=== PATIENT | female | born 1935 | race Caucasian/White ===

== ENCOUNTER 2016-11-18 15:47 | Emergency (ER) | payer OTHER ==
--- NOTE | ~2016-11-18 | CR210 ---
[facility] A Service of [facility] RADIOLOGY TEXT RESULTS PATIENT: SCOOTER CASTELLANO LOCATION: [facility] : 34 UNIT #: [id number] AGE: [address]: Juliocesar Mcmanus MD SEX: F ORDER DR: [id number] [facility] [address] [place], [place] [address] [id number] E MR#: [id number] #: [id number] NAME: SCOOTER CASTELLANO. : 1935 SEX: F STUDY DATE/TIME: 11/18/2016 16:56 UNIT: [facility] ROOM: STUDY DESCRIPTION: CR Ribs Uni 2 View W PA Ch Lt Attending Physician: Todd Mcmanus M.D. Ordering Physician: Angel Ames M.D. Primary Care Physician: Derrell Sood M.D. MEDICAL IMAGING REPORT This report is preliminary unless electronic signature is present EXAM PA chest with AP and oblique views of the left ribs COMPARISON 2 views of the chest dated July 15, 2013. INDICATION 17-year-old female with left-sided anterior rib pain since falling on the left side yesterday. FINDINGS There is a large to moderate sized hiatal hernia with internal air-fluid level in the lower midline chest. No evidence of pneumothorax, pleural effusion, pulmonary contusion or acute airspace disease. Heart size is normal. There is mild calcification of the thoracic aorta. There is mild scoliosis of the lumbar spine. There is diffuse calcification of the abdominal aorta. No evidence of acute rib fracture is seen. IMPRESSION 1. No evidence of acute rib fracture on the current exam. No acute radiographic abnormality of the chest. 2. Jlybrboq-hw-vzioj hiatal hernia. 3. Calcification of the thoracic and abdominal aorta. Dictated by... Amando Coulter M.D. THIS IS AN ELECTRONICALLY VERIFIED REPORT Amando Coulter M.D. at 11/23/2016 1:17 PM STACIE/rnr TD: 11/18/2016 21:53 [facility] A Service of [facility] RADIOLOGY TEXT RESULTS PATIENT: SCOOTER CASTELLANO LOCATION: [facility] #: [id number] : 34 UNIT #: [id number] AGE: [address]: Juliocesar Mcmanus MD SEX: F ORDER DR: JOB #: [id number] MEDICAL IMAGING REPORT Page 1 of 1 COPY
[~2016-11-18 15:47] MED LIST: ASPIRIN PO; CITRACAL + D CA1 TA1 PO; COREG3.125 MG PO; CRESTOR10 MG PO; DAKIN'S MODIF1000 ML EXT; DIAZIDE PO; FISH OIL 1,2001 CAP PO; FORTEO2.4 ML SQ; HYDROCODON-ACE1 EACH PO; LEVAQUIN PO; LOPID600 MG PO; LORAZEPAM0.5 MG PO; LYRICA75 MG PO; MEDROL PO; OSTEO BIFLEX TRIPLE PO; PERCOCET 5-3251 TAB PO; PREVACID PO; THERAGRAN-M 1,21 CAP PO; TRIAMTERENE; TRIAMTERENE PO; TRIAMTERENE-HCT1 TA8 PO; VALTREX PO; VICODIN 5/500 T1 TAB PO; VITAMIN B 12 PO; VITAMIN D 22000 UNIT PO; XARELTO15 MG PO; ZETIA PO; ZOLOFT PO
[2016-12-14] MEDS ORDERED: OMNICEF300 MG PO (12:51)
[2016-12-14] MEDS ORDERED: WOMEN S BONE H PO (12:51)
[2016-12-14] MEDS ORDERED: COREG3.125 MG PO (17:30)
[2016-12-14] MEDS ORDERED: CRESTOR PO (17:30)
[2016-12-14] MEDS ORDERED: VITAMIN D32000 UNI1 PO (17:31)
[2016-12-14] MEDS ORDERED: ATIVAN PO (17:31)
[2016-12-14] MEDS ORDERED: ZOLOFT100 MG PO (17:31)
[2016-12-14] MEDS ORDERED: ASPIRIN81 M2 PO (17:31)
[2016-12-14] MEDS ORDERED: FISH OIL 1,2001 CAP PO (17:31)
[2016-12-14] MEDS ORDERED: LANSOPRAZOLE30 M2 PO (17:32)
[2016-12-14] MEDS ORDERED: CITRACAL + D E1 EACH PO (17:32)
[2016-12-14] MEDS ORDERED: THERAGRAN-M PR1 EACH PO (17:32)
== END 2016-11-18 18:18 | disposition home or self-care (01) ==
LOC: CED 15:47
DX: S20.212A Contusion of left front wall of thorax, initial encounter (principal); Z88.5 Allergy status to narcotic agent; W18.30XA Fall on same level, unspecified, initial encounter; Y92.009 Unspecified place in unspecified non-institutional (private) residence as the place of occurrence of the external cause
CPT/HCPCS: 71101; 99283

== ENCOUNTER 2016-11-19 09:50 | Emergency (ER) | payer OTHER ==
[~2016-11-19] VITALS: Ht 167.6 cm; Wt 79.4 kg
--- NOTE | ~2016-11-19 | CT2 ---
[facility] A Service of [facility] RADIOLOGY TEXT RESULTS PATIENT: SCOOTER CASTELLANO LOCATION: [facility] : 34 UNIT #: [id number] AGE: [address]: Ej Orlando MD SEX: F ORDER DR: [id number] [facility] [place], [place] [address] [id number] E MR#: [id number] Acc #: [id number] NAME: SCOOTER CASTELLANO. : 1935 SEX: F STUDY DATE/TIME: 11/19/2016 12:32 UNIT: [facility] ROOM: STUDY DESCRIPTION: CT Abd and Pelv W Cont Attending Physician: Ej Orlando M.D. Ordering Physician: Ej Orlando M.D. Primary Care Physician: Derrell Sood M.D. MEDICAL IMAGING REPORT This report is preliminary unless electronic signature is present EXAM CT abdomen and pelvis INDICATIONS Left-sided abdominal pain status post fall. Hematoma along the left abdomen. Pain with inspiration. TECHNIQUE CT of the abdomen utilizing 100 mL Isovue-370 IV contrast. Coronal and sagittal reconstructions were obtained. This CT exam was performed with one or more of the following radiation dose reduction techniques: automatic exposure control, adjustment of mA and/or kV according to patient size, and iterative reconstruction. COMPARISON Concurrent CT chest 11/19/2016. FINDINGS There is a moderate hiatal hernia. There is no acute traumatic findings in the solid abdominal organs. Small volume of pneumobilia presumably represents prior sphincterotomy. Patient has a large periampullary duodenal diverticulum. There is extensive colonic diverticulosis. No diverticulitis. Pelvis: No pelvic mass. Bladder is unremarkable. No enlarged pelvic or inguinal lymph nodes. No acute osseous abnormalities. IMPRESSION 1. No acute traumatic findings or pelvis. [facility] A Service [facility] RADIOLOGY TEXT RESULTS PATIENT: SCOOTER CASTELLANO LOCATION: [facility] : 34 UNIT #: [id number] AGE: [address]: Ej Orlando MD SEX: F ORDER DR: 2. Extensive colonic diverticulosis. No diverticulitis. Dictated by... Raghavendra Ferrell M.D. THIS IS AN ELECTRONICALLY VERIFIED REPORT Raghavendra Ferrell M.D. at 11/20/2016 5:12 PM MUSTAPHA/isaac TD: 11/19/2016 16:40 JOB #: [id number] MEDICAL IMAGING REPORT Page 1 of 1 COPY
--- NOTE | ~2016-11-19 | CT55 ---
[facility] A Service of [facility] RADIOLOGY TEXT RESULTS PATIENT: SCOOTER CASTELLANO LOCATION: [facility] : 34 UNIT #: [id number] AGE: [address]: Ej Orlando MD SEX: F ORDER DR: [id number] [id number] [facility]. [place], [place] [address] [id number] E MR#: [id number] Acc #: [id number] NAME: SCOOTER CASTELLANO. : 1935 SEX: F STUDY DATE/TIME: 11/19/2016 12:32 UNIT: [facility] ROOM: STUDY DESCRIPTION: CT Chest W Con Attending Physician: Ej Orlando M.D. Ordering Physician: [facility] Primary Care Physician: Derrell Sood M.D. MEDICAL IMAGING REPORT This report is preliminary unless electronic signature is present EXAM CT chest INDICATIONS Fall. Left-sided pain. Hematoma left abdomen. Left chest pain. Pain with inspiration. TECHNIQUE CT of the chest with IV contrast. Coronal and sagittal reconstructions were obtained. This CT exam was performed with one or more of the following radiation dose reduction techniques: automatic exposure control, adjustment of mA and/or kV according to patient size, and iterative reconstruction. COMPARISON Chest radiograph 07/15/2013. FINDINGS There is some mild atelectasis in both lung bases, left greater than right. No evidence of acute pulmonary injury. Thoracic aorta is normal in caliber. No mediastinal hematoma. No pericardial or pleural effusion. Please refer to separately dictated report for details on the abdomen. There is no acute fracture. IMPRESSION 1. Mild atelectasis in the lung bases, left greater than right. 2. No acute traumatic findings identified. [facility] A Service of [facility] RADIOLOGY TEXT RESULTS PATIENT: SCOOTER CASTELLANO LOCATION: [facility] : 34 UNIT #: [id number] AGE: [address]: Ej Orlando MD SEX: F ORDER DR: Dictated by... Raghavendra Ferrell M.D. THIS IS AN ELECTRONICALLY VERIFIED REPORT Raghavendra Ferrell M.D. at 11/20/2016 5:11 PM MUSTAPHA/apollo TD: 11/19/2016 16:19 JOB #: [id number] MEDICAL IMAGING REPORT Page 1 of 1 COPY
[2016-11-19 12:31] LABS: BASOPHIL% 0.3 % (0-2.5); EOSINOPHIL% 0.4 % (0.0-7.0); HEMATOCRIT 33.5 % (35.0-45.0); HEMOGLOBIN 10.6 gm/dL (12.0-16.0); LYMPHOCYTE# 0.9 X10e3 (1.0-3.5); LYMPHOCYTE% 10.5 % (17.0-45.0); MEAN CELL VOLUME 96.1 FL (83-96); MEAN CORPUSCULAR HEMOGLOBIN 30.4 PG (28-34); MEAN CORPUSCULAR HGB CONC 31.7 g/dL (30-36); MEAN PLATELET VOLUME 9.7 FL (6.5-11.5); MONOCYTE# 0.7 X10e3 (0-1.0); MONOCYTE% 8.1 % (3.0-12.0); NEUTROPHIL# 6.8 X10e3 (1.5-7.1); NEUTROPHIL% 80.7 % (40-75); PLATELET COUNT 151 X10e3 (140-420); RED BLOOD COUNT 3.48 X10e (3.90-5.30); RED CELL DISTRIBUTION WIDTH 17.4 % (11.0-15.5); WHITE BLOOD COUNT 8.5 X10e3 (4.0-10.5)
[2016-11-19 12:32] LABS: DIFF IND NO
[2016-11-19 13:01] LABS: ALBUMIN SERUM 3.8 g/dL (3.5-5.0); BILIRUBIN, DIRECT 0.2 mg/dL (0.0-0.2); BILIRUBIN,INDIRECT 0.4 mg/dL (0.0-0.9); BILIRUBIN,TOTAL 0.6 mg/dL (0.2-2.0); CALCIUM SERUM 8.6 mg/dL (8.4-10.2); GLOM FILT RATE Estimated 52.4 mL/min (>60); POTASSIUM 4.2 mmol/L (3.5-5.1); PROTEIN TOTAL SERUM 7.7 g/dL (6.0-8.3)
[2016-11-19 16:15] LABS: POC - CREATININE 0.79 mg/dL (0.44-1.03); POC - GFR >60.0 mL/min (>60)
[2016-12-14] MEDS ORDERED: OMNICEF300 MG PO (12:51)
[2016-12-14] MEDS ORDERED: WOMEN S BONE H PO (12:51)
[2016-12-14] MEDS ORDERED: COREG3.125 MG PO (17:30)
[2016-12-14] MEDS ORDERED: CRESTOR PO (17:30)
[2016-12-14] MEDS ORDERED: ATIVAN PO (17:31)
[2016-12-14] MEDS ORDERED: ASPIRIN81 M2 PO (17:31)
[2016-12-14] MEDS ORDERED: VITAMIN D32000 UNI1 PO (17:31)
[2016-12-14] MEDS ORDERED: FISH OIL 1,2001 CAP PO (17:31)
[2016-12-14] MEDS ORDERED: ZOLOFT100 MG PO (17:31)
[2016-12-14] MEDS ORDERED: THERAGRAN-M PR1 EACH PO (17:32)
[2016-12-14] MEDS ORDERED: LANSOPRAZOLE30 M2 PO (17:32)
[2016-12-14] MEDS ORDERED: CITRACAL + D E1 EACH PO (17:32)
== END 2016-11-19 13:27 | disposition home or self-care (01) ==
LOC: CED 09:50
PROVIDERS: Emergency Medicine
DX: S20.212A Contusion of left front wall of thorax, initial encounter (principal); W18.09XA Striking against other object with subsequent fall, initial encounter; Y92.009 Unspecified place in unspecified non-institutional (private) residence as the place of occurrence of the external cause
CPT/HCPCS: 36415; 71260; 74177; 80048; 80076; 82565; 85025; 96374; 96375; 99284; J2270; J2405; Q9967

== ENCOUNTER 2016-11-22 13:34 | Inpatient (IN) | payer OTHER ==
[~2016-11-22] VITALS: Ht 167.6 cm; Wt 78.2 kg
--- NOTE | ~2016-11-22 | EKG ---
PATIENT: SCOOTER CASTELLANO UNIT #: [id number] Ventricular Rate: 74 BPM Atrial Rate: 74 BPM P-R Interval: 192 ms QRS Duration: 84 ms Q-T Interval: 382 ms QTC Calculation(Bezet): 424 ms P [place]: 48 degrees Calculated R [place]: -5 degrees Calculated T [place]: 34 degrees Diagnosis Line: Normal sinus rhythm Diagnosis Line: Normal ECG Diagnosis Line: No previous ECGs available Diagnosis Line: Confirmed by EVERT LY MD ([id number]) on Diagnosis Line: 11/22/2016 3:48:41 PM INTERPRETING MD: HERNAN
--- NOTE | ~2016-11-22 | HP ---
Unit #: [id number] #: [id number] Patient: SCOOTER CASTELLANO [id number] [facility]. [place], [place] [address] [id number] I MR#: [id number] NAME: SCOOTER CASTELLANO. ROOM: [id number] Age: 81 Sex: F Admission Date: 11/22/2016 : 1935 Attending Physician: Isa Ardon M.D. Primary Care Physician: Derrell Sood M.D. HISTORY AND PHYSICAL CHIEF COMPLAINT Altered mental status. HISTORY OF PRESENT ILLNESS The patient is an 81-year-old female with a past medical history of hypertension, hyperlipidemia, anxiety, depression, and vertigo, who presented to the emergency department for evaluation of the above. The patient apparently fell a few days prior to admission. She states that she has vertigo and "lost balance." She was seen in the emergency department on November 18, 2016. Imaging studies were done and showed no acute abnormality. She continued to have pain on the left torso area. She describes the pain as "sharp." It has been intermittent in nature. It is exaggerated by movement. Today, she started coughing. She reports chills, but no documented fever. She has also been somewhat confused per her daughter who is at the bedside. She has had visual hallucinations and has been "talking out of her head." She denies any vomiting and no diarrhea. In the emergency department, chest x-ray shows bibasilar atelectasis versus infiltrate. She was given Rocephin and azithromycin. She is being admitted to [facility] for evaluation and further treatment. PAST MEDICAL HISTORY 1. Admission to [facility] June 27, 2011, for back abscess, status post incision and drainage. Cultures grew MSSA. [facility]. 2. Hypertension. 3. Hyperlipidemia. 4. Anxiety and depression. 5. Vertigo. PAST SURGICAL HISTORY 1. Incision and drainage of back abscess. 2. Right hand surgery. 3. Hysterectomy. 4. Back surgery. SOCIAL HISTORY The patient lives alone. There is no tobacco or alcohol use. FAMILY HISTORY Unit #: [id number] #: [id number] Patient: GRAY,SCOOTER M Notable for her mother having breast cancer. ALLERGIES Codeine. HOME MEDICATIONS 1. Carvedilol. 2. Crestor. 3. Prevacid. 4. Lorazepam. 5. Zoloft. 6. Fish oil. 7. Aspirin. 8. Vitamin D. 9. Osteo Bi-Flex. 10. Citracal. 11. Lansoprazole. Home medications will need to be reviewed and verified. REVIEW OF SYSTEMS A complete review of systems is negative except as indicated in the History of Present Illness. PHYSICAL EXAMINATION VITAL SIGNS: Temperature is 98.2, pulse 86, respirations 16, blood pressure 155/82, and oxygen saturation is 93% on room air. GENERAL: Patient is a very pleasant female who is awake, alert, and in no acute distress. HEENT: Head is atraumatic. Mucous membranes are moist. NECK: Supple. Trachea is midline. CARDIOVASCULAR: Regular rate and rhythm. LUNGS: Clear to auscultation bilaterally with no increased work of breathing. ABDOMEN: Soft and nontender with bowel sounds present in all four quadrants. EXTREMITIES: Nontender with no pedal edema. NEUROLOGIC: Patient is awake and alert. She is oriented x3. She follows commands. PSYCHIATRIC: Mood and affect are normal. Patient is cooperative. SKIN: Skin of examined areas is warm and dry. The patient has ecchymoses involving the left torso. DIAGNOSTIC STUDIES LABORATORY: Complete blood count from today notable for hemoglobin and hematocrit of 10.3 and 33, respectively. Comprehensive metabolic panel notable for AST and ALT of 94 and 51, respectively, alkaline phosphatase is 200, and albumin is 3.4. IMAGING: Chest x-ray shows bibasilar atelectasis versus infiltrate. CT of the head shows nothing acute. Left rib detail shows no fracture. CT of the chest from November 19 showed mild atelectasis and no acute traumatic finding. CT of the abdomen and pelvis from November 19 showed no acute traumatic findings. Extensive colonic diverticulosis but no diverticulitis. CARDIOLOGY: EKG shows normal sinus rhythm with a rate of 74 beats per minute. Unit #: [id number] #: [id number] Patient: SCOOTER CASTELLANO ASSESSMENT The patient is an 81-year-old female with: 1. Altered mental status, toxic metabolic in etiology. 2. Pneumonia, community acquired. The patient received Rocephin and azithromycin in the emergency department. 3. Transaminitis. 4. Anemia. 5. Hypertension. 6. Hyperlipidemia. 7. Anxiety and depression. 8. History of vertigo. 9. History of fall. PLAN 1. Admit to intermediate level. 2. Healthy-heart diet if passes bedside swallow. 3. Normal saline at 75 mL/hour. 4. Bedrest. 5. Fall precautions. 6. PT/OT to evaluate and treat. 7. Incentive spirometry. 8. Neuro checks. 9. TSH, B12, and folate. 10. Blood cultures x2. 11. Sputum culture and sensitivity. 12. Rocephin and azithromycin pending further workup. 13. P.r.n. DuoNebs. 14. Mucinex. 15. Serial cardiac enzymes. 16. Repeat labs in the morning. 17. SCDs for DVT prophylaxis. 18. Additional workup and consultants based on above. 1. Dictated by Estelle Armstrong/isabela TD: 11/22/2016 19:55 JOB #: [id number] HISTORY AND PHYSICAL Page 1 of 1 X Isa Ardon MD X HISTORY AND PHYSICAL
--- NOTE | ~2016-11-22 | CO ---
Unit #: [id number] #: [id number] Patient: SCOOTER CASTELLANO [id number] [place], [place] [address] [id number] MR#: [id number] NAME: SCOOTER CASTELLANO. ROOM: [facility] Age: 81 Sex: F Admission Date: 11/22/2016 : 1935 Attending Physician: Chrissie Valles M.D. Primary Care Physician: Derrell Sood M.D. Consultation Date: 11/23/2016 CONSULTATION REPORT REASON FOR CONSULTATION Elevated troponin. 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 She states she has never had a myocardial infarction, 2D echocardiogram, or cardiac catheterization in the past. She has a past medical history of vertigo, fall, hypertension, hyperlipidemia, and anemia. She is a nonsmoker. Approximately five days ago, patient had a fall at home while she was cleaning her house. Reportedly per the patient's family, the patient was bending over cleaning, became dizzy, fell, and hit the TV stand. She did not hit her head. She was bruised on her left hip and up her left flank. The patient did come to the emergency department and reportedly had x-rays done which showed nothing acute. On Monday, the patient presented back to the emergency department with complaints of increasing pain on her left side. Reportedly, had a MRI done that again showed nothing acute. On Monday, the patient's family reports that the patient was becoming more confused and "talking out of her head." They monitored her at home, but ultimately wound up bringing her to the emergency department where chest x-ray showed bibasilar atelectasis versus infiltrate. She was treated with Rocephin and azithromycin. Her EKG was unremarkable. Her troponin was found to be 0.02. The patient's family also endorses that the patient started coughing yesterday on the day of admission. There were no complaints of shortness of air or chest pain. PAST MEDICAL HISTORY 1. Vertigo. 2. Falls. 3. Hypertension. 4. Hyperlipidemia. 5. Anemia. 6. Back abscess, status post incision and drainage in 2011 which grew MSSA. PAST SURGICAL HISTORY 1. Incision and drainage of the back abscess. 2. Right hand surgery. 3. Hysterectomy. 4. Back surgery. ALLERGIES Codeine. Unit #: [id number] #: [id number] Patient: SCOOTER CASTELLANO HOME MEDICATIONS 1. Fish oil 1200 mg two tabs p.o. daily. 2. Aspirin 81 mg p.o. daily. 3. Vitamin D 2000 units p.o. daily. 4. Osteo Bi-Flex caplet two tabs p.o. daily. 5. Citracal plus D ER tablet one tab p.o. daily. 6. Coreg 3.125 mg p.o. b.i.d. 7. Crestor 10 mg p.o. daily. 8. Prevacid 30 mg p.o. daily. 9. Lorazepam 1.5 mg p.o. daily. 10. Zoloft 200 mg p.o. at bedtime. 11. Theragran-M Premier 50+ caplet one tab p.o. daily. 12. Lansoprazole 30 mg p.o. daily. FAMILY HISTORY Notable for the patient's father having atherosclerosis and had a stroke. Patient's mother had cancer. SOCIAL HISTORY Patient rarely drinks a beer. There is no history of tobacco or illicit drug abuse, and she lives alone. REVIEW OF SYSTEMS A 10-point review of systems was done and considered otherwise negative unless indicated in the HPI. PHYSICAL EXAMINATION GENERAL: The patient is awake, alert, in no acute distress. VITAL SIGNS: Temperature 97.6, heart rate 71, respirations 18, blood pressure 150/68. She is oxygenating 98%. HEENT: Head is atraumatic, normocephalic. Pupils equal, round, and reactive to light. Extraocular movements are intact. No drainage from ears or nares. NECK: Supple. Trachea is midline. Normal carotid upstrokes. No thyromegaly, lymphadenopathy is appreciated. CHEST: Lungs are clear on the right, diminished on the left. No wheezes, rales, or rhonchi. CARDIOVASCULAR: S1, S2. Regular rate and rhythm. No murmurs, rubs, or gallops appreciated. ABDOMEN: Soft, nontender, nondistended. Bowel sounds are positive in all four quadrants. SKIN: Skin appears to be warm, dry, intact without any unusual rashes or lesions. She is bruised on her left thigh and upper left flank. EXTREMITIES: No clubbing, edema, or cyanosis. NEUROLOGIC: The patient is alert and oriented x3. She is pleasant, conversant. No focal deficits. DIAGNOSTIC STUDIES LABORATORY: White blood cells 4.6, hemoglobin 8.3, hematocrit 26.2, platelets 137,000. Sodium 139, potassium 3.7, chloride 111, CO2 of 23, BUN 14, creatinine 0.9, glucose 100. TSH 5.56. Troponin 0.2, 0.18, and 0.16. IMAGING: Chest x-ray shows bibasilar atelectasis versus infiltrate. CT scan of the head shows nothing acute. Unit #: [id number] #: [id number] Patient: SCOOTER CASTELLANO Left rib: Details show nothing acute. CT of the chest from November 19 shows mild atelectasis and no acute traumatic findings. CT of the abdomen and pelvis on November 19 showed no acute traumatic findings. Extensive colonic diverticulosis but no diverticulitis. CARDIOVASCULAR: EKG shows normal sinus rhythm with rate of 74 beats per minute. ASSESSMENT 1. Type [address] elevation myocardial infarction. 2. Community-acquired pneumonia, suspect gram-negative rods. 3. Toxic metabolic encephalopathy. 4. Vertigo. 5. Fall. 6. Elevated TSH. 7. Hypertension. 8. Hyperlipidemia. 9. Anemia. 10. Anxiety and depression. 11. Nonsmoker. PLAN Likely troponin elevation is secondary to supply and demand mismatch. There are no complaints of shortness of air or chest pain. Her EKG is normal. Will continue the patient on aspirin, beta hiro, and statin. Will check a 2D echocardiogram and orthostatics daily. Dr. Houston to see the patient for further recommendations. Dictated by... Lizzeth Wharton A.P.R.N. for Avinash Houston M.D. AM/nick TD: 11/23/2016 11:13 JOB #: [id number] CONSULTATION REPORT Page 1 of 1 X Lizzeth Wharton APRN X CONSULTATION REPORT
--- NOTE | ~2016-11-22 | CT71 ---
[facility] A Service of [facility] RADIOLOGY TEXT RESULTS PATIENT: SCOOTER CASTELLANO LOCATION: [facility] 322 : 34 UNIT #: [id number] AGE: [address]: Chrissie Valles MD SEX: F ORDER DR: [id number] [facility] [address] [facility]. [place], [place] [address] [id number] I MR#: [id number] Acc #: [id number] NAME: SCOOTER CASTELLANO. : 1935 SEX: F STUDY DATE/TIME: 11/22/2016 15:07 UNIT: [address] ROOM: [facility] STUDY DESCRIPTION: CT Head Wo Contrast Attending Physician: Isa Ardon M.D. Ordering Physician: Sonido Robbins M.D. Primary Care Physician: Derrell Sood M.D. MEDICAL IMAGING REPORT This report is preliminary unless electronic signature is present EXAM CT scan of the brain without contrast INDICATIONS Confusion, vertigo, hallucinations starting this morning. Patient fell 6 days ago. COMPARISON None. FINDINGS This CT exam was performed with one or more of the following radiation dose reduction techniques: Automatic exposure control, adjustment of mA and/or kV according to patient size, and iterative reconstruction. Unenhanced images were obtained through the brain. There is mucosal thickening filling most of the left sphenoid sinus. There is generalized atrophy, which is slightly greater in the left cerebral hemisphere than the right. The CSF spaces over the left cerebral hemisphere are more prominent than on the right, but there is no evidence of a subdural. There is no flattening of the sulci or compression of the brain. IMPRESSION Generalized atrophy. No evidence of fracture or extraaxial fluid collection. Dictated by... Milo Gasca M.D. THIS IS AN ELECTRONICALLY VERIFIED REPORT Milo Gasca M.D. at 11/23/2016 7:08 AM [facility] A Service [facility] RADIOLOGY TEXT RESULTS PATIENT: SCOOTER CASTELLANO LOCATION: [facility] 322- : 34 UNIT #: [id number] AGE: [address]: Chrissie Valles MD SEX: F ORDER DR: TD: 11/22/2016 23:43 JOB #: [id number] MEDICAL IMAGING REPORT Page 1 of 1 COPY
--- NOTE | ~2016-11-22 | CR72 ---
[facility] A Service of [facility] RADIOLOGY TEXT RESULTS PATIENT: SCOOTER CASTELLANO LOCATION: [facility] 322 : 34 UNIT #: [id number] AGE: [address]: Chrissie Valles MD SEX: F ORDER DR: [id number] [facility] [address] [place], [place] [address] [id number] I MR#: [id number] Acc #: [id number] NAME: SCOOTER CASTELLANO. : 1935 SEX: F STUDY DATE/TIME: 11/22/2016 14:28 UNIT: [address] ROOM: [facility] STUDY DESCRIPTION: CR Chest Single View Portable Attending Physician: Isa Ardon M.D. Ordering Physician: Sonido Robbins M.D. Primary Care Physician: Derrell Sood M.D. MEDICAL IMAGING REPORT This report is preliminary unless electronic signature is present EXAM Portable chest, 11/22 INDICATIONS Shortness of air with mental status changes since last , after a fall. History of hypertension. FINDINGS AP portable views of the chest compared with 11/18/2016. Heart is enlarged. Lung volumes are low. There is atelectasis or infiltrate in the bases. There is a small volume of left pleural fluid. No pneumothorax is seen. Again seen is a hiatal hernia. IMPRESSION Stable cardiomegaly with a hiatal hernia. There is atelectasis or infiltrate in both bases and there is probably a trace amount of left pleural fluid today. Dictated by... Clyde Almeida Jr., M.D. THIS IS AN ELECTRONICALLY VERIFIED REPORT Clyde Almeida Jr., M.D. at 11/23/2016 8:29 AM MELISSAK/sherrill TD: 11/22/2016 23:06 JOB #: [id number] MEDICAL IMAGING REPORT Page 1 of 1 COPY
--- NOTE | ~2016-11-22 | DS ---
Unit #: [id number] #: [id number] Patient: SCOOTER CASTELLANO [id number] [address] [address] [id number] I MR#: [id number] NAME: SCOOTER CASTELLANO. ROOM: [facility] Age: 81 Sex: F Admission Date: 11/22/2016 : 1935 Discharge Date: 11/25/2016 Attending Physician: Chrissie Valles M.D. Primary Care Physician: Derrell Sood M.D. DISCHARGE SUMMARY DIAGNOSES ON ADMISSION 1. Altered mental status. 2. Pneumonia. DIAGNOSES ON DISCHARGE 1. Acute toxic metabolic encephalopathy, resolved. 2. Community-acquired pneumonia. 3. Anemia. 4. Hypertension. 5. Hyperlipidemia. 6. Vertigo. 7. Valvular heart disease with mild tricuspid, mitral and pulmonary regurgitation. 8. Ejection fraction is 65%. 9. Orthostatic hypotension. 10. Elevated troponin. 11. History of fall. CONSULTATIONS Dr. Houston in cardiology consultation. DIAGNOSTIC STUDIES LABS: The patient's creatinine is 0.8, sodium 141, potassium 4. Vitamin B12 was 567. Troponin was 0.2. WBC was 4.6, hemoglobin was 8.3, platelet count was 137. Blood cultures did not reveal any growth so far. TSH was 5.65. IMAGING: The patient's left-sided rib series did not reveal any evidence of acute fracture. The patient had a large hiatal hernia. CT scan of the head did not reveal any acute findings. There was generalized atrophy present. CT scan of the chest revealed mild atelectasis. There was no acute traumatic finding. CT scan of the abdomen and pelvis revealed no acute findings. HOSPITAL COURSE This 81-year-old patient was admitted to the hospital with pneumonia. Details are as per admission H and P. Pneumonia. The patient was treated with IV antibiotics. The patient responded well and is afebrile and feeling much better. Unit #: [id number] #: [id number] Patient: SCOOTER CASTELLANO Acute toxic metabolic encephalopathy. It was secondary to pneumonia. It has resolved. The patient is feeling better. Elevated troponin. The patient was seen by cardiology in consultation who performed (1) with findings as above. Cardiology thought that the patient had type 2 acute non-ST elevation MT. They recommended that the patient needs to follow up on an outpatient basis with cardiology. PHYSICAL EXAMINATION GENERAL: Today, the patient is comfortable, is not in any acute distress. She wants to go home and is anxiously waiting. VITAL SIGNS: Vital signs reveal temperature of 98.5, pulse 68 per minute, respiratory rate 18 per minute and blood pressure 134/54. The patient does not have any orthostatic hypotension. HEENT: Examination revealed no conjunctival congestion. Sclera is nonicteric. NECK: Neck is supple. Trachea is central. RESPIRATORY: Examination revealed equal breath sounds bilaterally. There are no wheezes or crackles. HEART: Regular rate and rhythm. S1, S2. ABDOMEN: Abdomen is soft, nontender. Bowel sounds are present in all 4 quadrants. NEUROLOGIC: The patient is alert to person, place and time. Power is 5/5 bilaterally. Sensations are grossly intact. SKIN: Skin is warm and dry. RECOMMENDATIONS ON DISCHARGE 1. Condition is stable. 2. Activity is as tolerated. DISCHARGE MEDICATIONS 1. Zoloft 200 mg p.o. q.h.s. 2. Lorazepam 1.5 mg p.o. daily. 3. Coreg 3.125 mg p.o. b.i.d. 4. Crestor 10 mg p.o. daily. 5. Fish oil 1 capsule p.o. daily. 6. Multivitamin 1 tablet p.o. daily. 7. Enteric-coated aspirin 81 mg p.o. daily. 8. Prevacid 30 mg p.o. daily. 9. Calcium with vitamin D 1 tablet p.o. daily. 10. Vitamin D 2,000 units p.o. daily. 11. Omnicef 300 mg p.o. b.i.d. for 5 days. FOLLOWUP/RECOMMENDATIONS 1. The patient is advised to follow up with primary care physician in 1 week and have a CBC and BMP done for followup on workup of anemia. 2. The patient is advised to follow up with Dr. Houston as recommended. 3. The patient is advised to call primary care physician or go to ER if her condition changes. 4. We will arrange home health regarding home PT, OT and nursing. NOTE: The plan was discussed in detail with the patient and has also been discussed with the patient's daughter, who showed complete understanding. Unit #: [id number] #: [id number] Patient: SCOOTER CASTELLANO M.D. MB/db TD: 11/25/2016 12:22 JOB #: [id number] CC: Avinash Houston M.D. DISCHARGE SUMMARY Page 1 of 1 X Chrissie Valles MD X DISCHARGE SUMMARY
[2016-11-22 14:55] LABS: BASOPHIL% 0.5 % (0-2.5); EOSINOPHIL# 0.2 X10e3 (0-0.7); EOSINOPHIL% 2.5 % (0.0-7.0); HEMOGLOBIN 10.3 gm/dL (12.0-16.0); LYMPHOCYTE# 0.8 X10e3 (1.0-3.5); MEAN CELL VOLUME 96.6 FL (83-96); MEAN CORPUSCULAR HEMOGLOBIN 30.3 PG (28-34); MEAN CORPUSCULAR HGB CONC 31.3 g/dL (30-36); MONOCYTE# 0.5 X10e3 (0-1.0); MONOCYTE% 7.3 % (3.0-12.0); NEUTROPHIL# 4.9 X10e3 (1.5-7.1); NEUTROPHIL% 76.7 % (40-75); PLATELET COUNT 166 X10e3 (140-420); RED BLOOD COUNT 3.42 X10e (3.90-5.30); RED CELL DISTRIBUTION WIDTH 17.9 % (11.0-15.5); WHITE BLOOD COUNT 6.4 X10e3 (4.0-10.5)
[2016-11-22 15:09] LABS: DIFF IND NO
[2016-11-22 15:15] LABS: ALBUMIN SERUM 3.4 g/dL (3.5-5.0); BILIRUBIN, DIRECT 0.2 mg/dL (0.0-0.2); BILIRUBIN,INDIRECT 0.4 mg/dL (0.0-0.9); BILIRUBIN,TOTAL 0.6 mg/dL (0.2-2.0); BUN/CREATININE RATIO 18.18; CALCIUM SERUM 8.7 mg/dL (8.4-10.2); CREATININE SERUM 1.1 mg/dL (0.6-1.4); GLOM FILT RATE Estimated 46.7 mL/min (>60); PROTEIN TOTAL SERUM 7.2 g/dL (6.0-8.3)
[2016-11-22 17:24] LABS: CK TOTAL 41 IU/L (26-140)
[2016-11-22 17:27] LABS: URINE SOURCE CLEAN CATCH
[2016-11-22] MEDS ORDERED: PREVACID15 MG PO (17:31)
[2016-11-22] MEDS ORDERED: OSTEO BI-FLEX1 EAC1 PO (17:32)
[2016-11-22 17:37] LABS: URINE APPEARANCE CLEAR; URINE BILIRUBIN NEG (NEG); URINE BLOOD NEG (NEG); URINE COLOR YELLOW; URINE GLUCOSE NEG (NEG); URINE KETONE NEG (NEG); URINE LEUKOCYTE ESTERASE NEG (NEG); URINE NITRATE NEG (NEG); URINE PROTEIN NEG (NEG); URINE SPECIFIC GRAVITY 1.017 (1.003-1.035)
[2016-11-22 17:51] LABS: CULTURE INDICATED? NO
[2016-11-23 01:48] LABS: CK TOTAL 39 IU/L (26-140)
[2016-11-23 05:13] LABS: HEMATOCRIT 26.2 % (35.0-45.0); MEAN CELL VOLUME 95.5 FL (83-96); MEAN CORPUSCULAR HEMOGLOBIN 30.2 PG (28-34); MEAN CORPUSCULAR HGB CONC 31.6 g/dL (30-36); MEAN PLATELET VOLUME 9.4 FL (6.5-11.5); RED BLOOD COUNT 2.75 X10e (3.90-5.30); RED CELL DISTRIBUTION WIDTH 17.4 % (11.0-15.5); WHITE BLOOD COUNT 4.6 X10e3 (4.0-10.5)
[2016-11-23 05:16] LABS: HEMOGLOBIN 8.3 gm/dL (12.0-16.0)
[2016-11-23 05:41] LABS: CK TOTAL 33 IU/L (26-140)
[2016-11-23 05:51] LABS: ALBUMIN SERUM 2.6 g/dL (3.5-5.0); BILIRUBIN,TOTAL 0.4 mg/dL (0.2-2.0); BUN/CREATININE RATIO 21.11; CREATININE SERUM 0.9 mg/dL (0.6-1.4); GLOM FILT RATE Estimated 59.6 mL/min (>60); POTASSIUM 3.7 mmol/L (3.5-5.1); PROTEIN TOTAL SERUM 5.6 g/dL (6.0-8.3)
[2016-11-24 07:27] LABS: ALBUMIN SERUM 2.6 g/dL (3.5-5.0); BILIRUBIN,TOTAL 0.6 mg/dL (0.2-2.0); CALCIUM SERUM 7.9 mg/dL (8.4-10.2); CREATININE SERUM 0.8 mg/dL (0.6-1.4); GLOM FILT RATE Estimated 68.7 mL/min (>60); MAGNESIUM 1.8 mg/dL (1.6-3.0); PROTEIN TOTAL SERUM 5.3 g/dL (6.0-8.3)
[2016-12-14] MEDS ORDERED: WOMEN S BONE H PO (12:51)
[2016-12-14] MEDS ORDERED: OMNICEF300 MG PO (12:51)
[2016-12-14] MEDS ORDERED: COREG3.125 MG PO (17:30)
[2016-12-14] MEDS ORDERED: CRESTOR PO (17:30)
[2016-12-14] MEDS ORDERED: VITAMIN D32000 UNI1 PO (17:31)
[2016-12-14] MEDS ORDERED: ZOLOFT100 MG PO (17:31)
[2016-12-14] MEDS ORDERED: ASPIRIN81 M2 PO (17:31)
[2016-12-14] MEDS ORDERED: ATIVAN PO (17:31)
[2016-12-14] MEDS ORDERED: FISH OIL 1,2001 CAP PO (17:31)
[2016-12-14] MEDS ORDERED: CITRACAL + D E1 EACH PO (17:32)
[2016-12-14] MEDS ORDERED: THERAGRAN-M PR1 EACH PO (17:32)
[2016-12-14] MEDS ORDERED: LANSOPRAZOLE30 M2 PO (17:32)
== END 2016-11-25 13:39 | disposition home or self-care (01) | DRG 280 ==
LOC: CED 13:34 → C3A PCU 16:25 → CEDOF 16:25 → C3A PCU 16:36 → CEDOF 16:36 → CED 16:36 → CEDOF 21:22 → C3A PCU 21:22
PROVIDERS: Emergency Medicine; Family Medicine; Internal Medicine
PROC: B24BYZZ Ultrasonography of Heart with Aorta using Other Contrast (ICD-10-PCS; principal; 2016-11-23)
DX: I21.4 Non-ST elevation (NSTEMI) myocardial infarction (principal); G92 Toxic encephalopathy; J18.9 Pneumonia, unspecified organism; D64.9 Anemia, unspecified; I10 Essential (primary) hypertension; F32.9 Major depressive disorder, single episode, unspecified; S20.212A Contusion of left front wall of thorax, initial encounter; J98.11 Atelectasis; R74.0 Nonspecific elevation of levels of transaminase and lactic acid dehydrogenase [LDH]; E78.5 Hyperlipidemia, unspecified; F41.9 Anxiety disorder, unspecified; Z91.81 History of falling; Z90.710 Acquired absence of both cervix and uterus; Z79.82 Long term (current) use of aspirin; R42 Dizziness and giddiness; I08.1 Rheumatic disorders of both mitral and tricuspid valves; I95.1 Orthostatic hypotension; K44.9 Diaphragmatic hernia without obstruction or gangrene; W18.09XA Striking against other object with subsequent fall, initial encounter; Y92.009 Unspecified place in unspecified non-institutional (private) residence as the place of occurrence of the external cause
CPT/HCPCS: 36415; 70450; 71010; 80048; 80053; 80076; 81003; 82550; 82607; 82746; 82947; 83735; 84443; 84484; 85025; 85027; 87040; 93005; 93306; 94760; 97162; 97166; 99285; G8978-GP; G8979-GP; G8980-GP; G8987-GO; G8988-GO; G8989-GO; J0456; J0696

== ENCOUNTER → 2016-12-14 | Outpatient (CLI) | payer OTHER ==
[~2016-12-14] MED LIST changes: +ASPIRIN81 M2 PO; +ATIVAN PO; +CITRACAL + D E1 EACH PO; +CRESTOR PO; +LANSOPRAZOLE30 M2 PO; +OMNICEF300 MG PO; +OSTEO BI-FLEX1 EAC1 PO; +PREVACID15 MG PO; +THERAGRAN-M PR1 EACH PO; +VITAMIN D32000 UNI1 PO; +WOMEN S BONE H PO; +ZOLOFT100 MG PO
== END | disposition home or self-care (01) ==
LOC: CSSDAY 10:13
DX: M81.0 Age-related osteoporosis without current pathological fracture (principal)
CPT/HCPCS: 82310; 96372; J0897

== ENCOUNTER → 2016-12-27 | Outpatient (CLI) | payer OTHER ==
--- NOTE | ~2016-12-27 | US6 ---
[facility] A Service of [facility] RADIOLOGY TEXT RESULTS PATIENT: SCOOTER CASTELLANO LOCATION: [facility] : 34 UNIT #: [id number] AGE: [address]: Derrell Sood MD SEX: F ORDER DR: [id number] [address] [address] [id number] O MR#: [id number] Acc #: [id number] NAME: SCOOTER CASTELLANO. : 1935 SEX: F STUDY DATE/TIME: 12/27/2016 10:59 UNIT: SGUS ROOM: STUDY DESCRIPTION: US Abdominal Limited Attending Physician: Derrell Sood M.D. Referring Physician: Derrell Sood M.D. Ordering Physician: Derrell Sood M.D. Primary Care Physician: Derrell Sood M.D. MEDICAL IMAGING REPORT This report is preliminary unless electronic signature is present. EXAM Right upper quadrant ultrasound INDICATIONS Abnormal elevated liver function tests for several weeks. TECHNIQUE Sabillon-scale and color Doppler sonographic images were obtained through the right upper quadrant. FINDINGS Pancreas is not well seen due to overlying bowel gas. Liver measures within normal size limits, no focal hepatic lesions are seen and I do not see any definite masses. There is no intra- or extrahepatic biliary dilatation. There is no gallbladder wall thickening or pericholecystic fluid. No stones or sludge are seen within the relatively contracted gallbladder. Right kidney demonstrates no hydronephrosis; no solid or cystic renal masses are seen. Main portal vein is patent with hepatopetal flow. Common bile duct is not well assessed due to overlying bowel gas. Patient on prior study did have some pneumobilia which probably is also contributing to the difficulty in adequately visualizing the common bile duct. IMPRESSION No acute findings. Please note pancreas is not well seen due to overlying bowel gas and appeared relatively atrophic on prior CT from November 19, 2016. 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 [facility] A Service of [facility] & [facility] RADIOLOGY TEXT RESULTS PATIENT: SCOOTER CASTELLANO LOCATION: [facility] : 34 UNIT #: [id number] AGE: [address]: Derrell Sood MD SEX: F ORDER DR: Dictated by... Jacque Crawford M.D. THIS IS AN ELECTRONICALLY VERIFIED REPORT Jacque Crawford M.D. at 12/30/2016 5:49 PM AFF/psc TD: 12/27/2016 23:57 JOB #: [id number] MEDICAL IMAGING REPORT Page 1 of 1
== END | disposition home or self-care (01) ==
LOC: SGUS 07:25
DX: R79.89 Other specified abnormal findings of blood chemistry (principal)
CPT/HCPCS: 76705

== ENCOUNTER → 2017-01-12 | Day surgery (SDC) | payer OTHER ==
--- NOTE | ~2017-01-12 | OR ---
Unit #: [id number] #: [id number] Patient: SCOOTER CASTELLANO [id number] [address] [place], [place] [address] [id number] O MR#: [id number] NAME: SCOOTER CASTELLANO ROOM: Date of Procedure: 01/12/2017 Admission Date: 01/12/2017 Surgeon: Zenon Ceballos M.D. : 1935 Attending Physician: Zenon Ceballos M.D. Referring Physician: Zenon Ceballos M.D. Primary Care Physician: Derrell Sood M.D. OPERATIVE REPORT PREOPERATIVE DIAGNOSES Radiculopathy, back pain, lumbar disk herniation. POSTOPERATIVE DIAGNOSES Radiculopathy, back pain, lumbar disk herniation. PROCEDURE PERFORMED Transforaminal epidural steroid injection for right L4-L5, selective nerve root blocks with intravenous sedation and fluoroscopic guidance for needle localization. INDICATIONS FOR PROCEDURE The patient is an 81-year-old female with right-sided lower extremity and back pain. Workup demonstrated most significant focal right L4-L5 disk extrusion contacting the right L4 and L5 nerve roots. There is spinal stenosis at this level as well. The request is for trial of transforaminal injection to address these 2 issues as diagnostic and therapeutic modality. Risks and benefits were all reviewed. DESCRIPTION OF PROCEDURE The patient was placed in a prone position. Standard monitors were applied. 2 mg of Versed were given for sedation and anxiolysis, which were adequate. Vital signs remained stable. Sterile prep and drape then of lumbar area was performed. The skin to the right of midline at the L4-L5 level was localized with 1% lidocaine. A long 22-gauge Quincke point spinal needle was advanced with biplanar fluoroscopic guidance to advance the needle to within the edge of the right L4-L5 neural foramina. The patient had mild paresthesia, which quickly abated with manipulation of the needle. After confirming proper positioning with fluoroscopy and radiographic contrast, a dose of 80 mg of Depo-Medrol and 1 mL of 0.25% bupivacaine were deposited. The patient tolerated the procedure otherwise well and was discharged to the recovery room in stable condition. Dictated by... Estelle Marie/fletcher TD: 01/13/2017 09:06 JOB #: [id number] Unit #: [id number] #: [id number] Patient: SCOOTER CASTELLANO CC: Huber Steven OPERATIVE REPORT Page 1 of 1 X Zenon Ceballos MD X PROCEDURE OPERATIVE NOTE
== END | disposition home or self-care (01) ==
LOC: CCSC 10:29
DX: M51.16 Intervertebral disc disorders with radiculopathy, lumbar region (principal); M43.16 Spondylolisthesis, lumbar region; M43.17 Spondylolisthesis, lumbosacral region; M99.73 Connective tissue and disc stenosis of intervertebral foramina of lumbar region; Z88.5 Allergy status to narcotic agent; Z79.82 Long term (current) use of aspirin; Z79.899 Other long term (current) drug therapy
CPT/HCPCS: J1040; J2250

== ENCOUNTER → 2017-01-25 | Outpatient (CLI) | payer OTHER ==
--- NOTE | ~2017-01-25 | US37 ---
[facility] A Service of [facility] RADIOLOGY TEXT RESULTS PATIENT: SCOOTER CASTELLANO LOCATION: [facility] : 34 UNIT #: [id number] AGE: [address]: Avinash Houston MD SEX: F ORDER DR: [id number] [facility] [address] [place], [place] [address] [id number] O MR#: [id number] Acc #: [id number] NAME: SCOOTER CASTELLANO. : 1935 SEX: F STUDY DATE/TIME: 01/25/2017 15:44 UNIT: CNIV ROOM: STUDY DESCRIPTION: US Carotid W/Doppler Bilateral Attending Physician: Avinash Houston M.D. Referring Physician: Avinash Houston M.D. Ordering Physician: Avinash Houston M.D. Primary Care Physician: Derrell Sood M.D. MEDICAL IMAGING REPORT This report is preliminary unless electronic signature is present EXAM Carotid duplex scan. DATE OF EXAMINATION 01/25/2017 HISTORY Increasing dizziness. Syncope. FINDINGS The right common carotid artery has a small amount of heterogeneous plaque which extends up into the proximal internal and external carotid arteries. The right internal carotid artery is very tortuous. Peak systolic velocity in the mid right internal carotid artery is 220 cm/sec with an end-diastolic velocity if 31 cm/sec. The elevated velocities in the mid right internal carotid artery appear to be due to tortuosity rather than stenosis. The ICA:CCA ratio on the right is 3.0. Peak systolic velocity in the right external carotid artery is 130 cm/sec. The right vertebral artery is patent with antegrade flow. The left common carotid artery has a small amount of heterogeneous plaque which extends up into the proximal internal and external carotid arteries. Peak systolic velocity in the proximal left internal carotid artery is 164 cm/sec with an end-diastolic velocity of 28 cm/sec. The internal carotid artery on the left is also relatively tortuous. The ICA:CCA ratio on the left is 1.4. Peak systolic velocity in the left external carotid artery is 173 cm/sec. The left vertebral artery is patent with antegrade flow. IMPRESSION Moderate stenosis (50 to 69%) of the internal carotid arteries bilaterally. The degree of stenosis in the internal carotid arteries may be overestimated because of artifact due to tortuosity. Significant [facility] A Service of [facility] RADIOLOGY TEXT RESULTS PATIENT: SCOOTER CASTELLANO LOCATION: [facility] : 34 UNIT #: [id number] AGE: [address]: Avinash Houston MD SEX: F ORDER DR: stenosis of the external carotid arteries on both sides. Patent vertebral arteries bilaterally with antegrade flow. Dictated by... Robinson So M.D. THIS IS AN ELECTRONICALLY VERIFIED REPORT Robinson So M.D. at 01/26/2017 7:17 AM MAYLIN/natalie TD: 01/25/2017 21:24 JOB #: [id number] MEDICAL IMAGING REPORT Page 1 of 1 COPY
== END | disposition home or self-care (01) ==
LOC: CNIV 14:58
DX: R09.89 Other specified symptoms and signs involving the circulatory and respiratory systems (principal); I65.23 Occlusion and stenosis of bilateral carotid arteries
CPT/HCPCS: 93880